=== PATIENT | female | born 1950 | race Caucasian/White ===

== ENCOUNTER 2017-11-04 07:01 | Day surgery (SDC) | payer MEDICAID ==
[2017-11-04] MEDS ORDERED: PROPOFOL 20 ML (08:18)
== END 2017-11-04 11:30 | disposition home or self-care (01) ==
LOC: GIL 07:01
DX: K29.50 Unspecified chronic gastritis without bleeding (principal); B96.81 Helicobacter pylori [H. pylori] as the cause of diseases classified elsewhere; K21.9 Gastro-esophageal reflux disease without esophagitis; J45.909 Unspecified asthma, uncomplicated; E66.9 Obesity, unspecified; Z68.35 Body mass index [BMI] 35.0-35.9, adult; Z79.82 Long term (current) use of aspirin; Z88.0 Allergy status to penicillin
CPT/HCPCS: 43239; 88305; 88312

== ENCOUNTER 2017-11-05 07:29 | Day surgery (SDC) | payer MEDICAID ==
[2017-11-05] MEDS ORDERED: PROPOFOL 20 ML (08:21)
[2017-11-05] MEDS ORDERED: LIDOCAINE 2% (SDV) 5 ML INJ (08:21)
[2017-11-05] MEDS ORDERED: ETOMIDATE 20 MG INJ (08:21)
[2017-11-05] MEDS ORDERED: ALBUTEROL HFA 8 GM INHALER (08:37)
== END 2017-11-05 10:03 | disposition home or self-care (01) ==
LOC: GIL 07:29
DX: Z12.11 Encounter for screening for malignant neoplasm of colon (principal); K62.1 Rectal polyp; K64.8 Other hemorrhoids; J45.909 Unspecified asthma, uncomplicated; K21.9 Gastro-esophageal reflux disease without esophagitis; E78.5 Hyperlipidemia, unspecified; E66.9 Obesity, unspecified; Z68.33 Body mass index [BMI] 33.0-33.9, adult; Z88.0 Allergy status to penicillin
CPT/HCPCS: 45380; 88305